=== PATIENT | male | born 1985 | race Caucasian/White ===

== ENCOUNTER → 2021-05-30 | Outpatient (CLI) | payer OTHER ==
--- NOTE | 2021-05-30 11:37 | ECHOF ---
Referral Reason:R55 Syncope MEASUREMENTS -------- HEIGHT: 180.3 cm WEIGHT: 124.7 kg BP: RVIDd: 3.2 cm (< 3.3) IVSd: 1.4 cm (0.6 - 1.1) LVIDd: 3.6 cm (3.9 - 5.3) LVPWd: 1.6 cm (0.6 - 1.1) IVSs: 1.8 cm LVIDs: 2.3 cm LVPWs: 1.7 cm LAESV Index (A-L): 13.16 ml/m Ao Diam: 3.1 cm (2.0 - 3.7) AV Cusp: 2.2 cm (1.5 - 2.6) LA Diam: 3.1 cm (2.7 - 3.8) MV EXCURSION: 12.842 mm (> 18.000) MV EF SLOPE: 62 mm/s (70 - 150) EPSS: 0.7 cm MV E Delvis: 0.72 m/s MV DecT: 142 ms MV A Delvis: 0.53 m/s MV E/A Ratio: 1.35 RAP: 5.00 mmHg RVSP: 16.77 mmHg FINDINGS -------- Sinus rhythm. This was a technically good study. The left ventricular size is normal. There is mild concentric left ventricular hypertrophy. Overa ll left ventricular systolic function is normal with, an EF between 55 - 60 %. The diastolic fillin g pattern is normal for the age of the patient 6.32. The right ventricle is normal in size. Normal LA size by volume 22+/-6 ml/m2. The right atrial size is normal. The aortic valve is trileaflet, and appears structurally normal. No aortic stenosis or regurgitation. The mitral valve is normal. There is trace mitral regurgitation. The tricuspid valve appears structurally normal. Trace tricuspid regurgitation present. Right martínez tricular systolic pressure is normal at < 35 mmHg. There is no pulmonic regurgitation present. The aortic root size is normal. Normal inferior vena cava with normal inspiratory collapse consistent with estimated right atrial pre ssure of 5 mmHg. There is no pericardial effusion. CONCLUSIONS -------- 1. There is mild concentric left ventricular hypertrophy. 2. Overall left ventricular systolic function is normal with, an EF between 55 - 60 %. 3. Normal LA size by volume 22+/-6 ml/m2. 4. The aortic valve is trileaflet, and appears structurally normal. No aortic stenosis or regurgitati on. 5. There is trace mitral regurgitation. 6. Trace tricuspid regurgitation present. 7. There is no pericardial effusion. [employer]: Desire Brasher RDCS
--- NOTE | 2021-05-30 12:21 | CT ---
EXAMINATION TYPE: CT brain wo con DATE OF EXAM: 05/30/2021 COMPARISON: Syncope HISTORY: Syncope CT DLP: 1090.4 mGycm. Automated Exposure Control for Dose Reduction was Utilized. TECHNIQUE: CT scan of the head is performed without contrast. FINDINGS: There is no acute intracranial hemorrhage, mass effect, or midline shift identified. The ventricles and sulci are within normal limits in size. The globes are intact and the visualized sin uses are clear. Minimal changes of bilateral mastoiditis. Rubella tonsils are low-lying in position. IMPRESSION: No acute intracranial hemorrhage, mass effect, or midline shift is seen. Low-lying cereb ellar tonsils recommend MRI to assess for possible Chiari malformation.
--- NOTE | 2021-05-30 19:37 | EST ---
EXERCISE STRESS AGE: 36 SEX: M HT: 6' WT: 275 lbs. PROTOCOL: Shaun STAGE: 4 DURATION OF EXERCISE: 12:00 HEART RATE REST: 71 BLOOD PRESSURE REST: 139/72 MAXIMUM HEART RATE ACHIEVED: 177 MAXIMUM BLOOD PRESSURE: 196/68 85% MPHR: 155 100% MPHR: 182 METS: 12.1 INDICATIONS: Syncope CLINICAL INFORMATION: Baseline rhythm is sinus mechanism, rate of 71, normal axis and intervals, normal electrocardiogram. Baseline blood pressure 139/72 mmHg. Patient exercised on Shaun protocol for 12 minutes, reaching peak rate of 177 beats per minute, which is equal to 97% of maximum predicted heart rate. Peak blood pressure 157/67 mmHg. Test was terminated secondary to fatigue. There was no chest pain. Electrocardiograph monitoring revealed no evidence of diagnostic ischemic ST deviation. CONCLUSION: 1. Good exercise tolerance with no chest discomfort. 2. Normal electrocardiographic response to exercise with no evidence of exercise- induced ischemia. MMODL / IJN: [id number] /
== END | disposition home or self-care (01) ==
LOC: RADNMMAIN 08:41
PROVIDERS: ATTEND Family Medicine
DX: R55 Syncope and collapse (principal); I08.1 Rheumatic disorders of both mitral and tricuspid valves
CPT/HCPCS: 70450; 93017; 93306

== ENCOUNTER → 2022-01-09 | Outpatient (CLI) | payer OTHER ==
--- NOTE | 2022-01-10 02:42 | MR ---
EXAMINATION TYPE: MR brain wo con DATE OF EXAM: 01/09/2022 COMPARISON: None HISTORY: Abnormal CT, chiari malformation. Multiplanar multiecho imaging of the brain without contrast. Ventricles have normal size. There is no mass effect or midline shift. No sign of intracranial hemorr lokesh. Fourth ventricle is in normal position. The anand and white matter structures have fairly normal signal pattern. No evidence of cerebral edema. Diffusion images show no sign of an acute infarct. Th e brainstem is intact. Cerebellum is intact. I see no evidence of Chiari malformation of the cerebell um. No evidence of posterior fossa mass. IMPRESSION: Negative exam. Brain appears within normal limits. No evidence of Chiari malformation.
== END | disposition home or self-care (01) ==
LOC: RADMRIMAIN 20:34
PROVIDERS: ATTEND Family Medicine
DX: R93.0 Abnormal findings on diagnostic imaging of skull and head, not elsewhere classified (principal)
CPT/HCPCS: 70551

== ENCOUNTER → 2022-04-08 | Outpatient (CLI) | payer OTHER ==
--- NOTE | 2022-04-08 10:57 | XR ---
Lumbar spine HISTORY: Back pain 3 views of the lumbar spine There is mild multilevel spondylosis. Lumbar vertebral bodies show preserved height, alignment, bone mineralization. Generative changes are present in the lower thoracic spine. Surgical clips present in the right lower quadrant. IMPRESSION: Degenerative disc disease.
[2022-04-08 22:40] LABS: Uric Acid 24 Hour,Urine 0.98 g/24Hr (0.25-0.75)
== END | disposition home or self-care (01) ==
LOC: LABWHC1 09:22
PROVIDERS: ATTEND Family Medicine
DX: M51.36 Other intervertebral disc degeneration, lumbar region (principal); M47.896 Other spondylosis, lumbar region
CPT/HCPCS: 72100; 81050; 84560